=== PATIENT | female | born 1955 | race Caucasian/White ===

== ENCOUNTER 2018-09-18 20:38 | Emergency (ER) | payer MEDICAID, OTHER ==
[~2018-09-18] VITALS: Ht 152.4 cm; Wt 54.4 kg
--- NOTE | 2018-09-18 20:47 | ED Lower Extremity ---
General Stated Complaint: LEFT ANKLE PAIN Source: patient Exam Limitations: no limitations History of Present Illness Date Seen by Provider: Sep 18, 2018 Time Seen by Provider: 20:43 Initial Comments To ER with left ankle and foot pain. She arrives per EMS from [place] and [place]. Primary care is Dr. Randle in [facility]. She states that this began 2 weeks ago after a fall. She has fallen several more times because of the left ankle pain. Tonight, she took 3 of her 0.5 mg Xanax tablets hoping to "just go to sleep". About an hour later she didn't have much pain improvement from the Xanax, so she took another 3 tablets. She has also been taking tramadol at home without much relief. She states that she has not seen Dr. Sommers for any of this pain. Onset: just prior to arrival Severity: moderate Pain/Injury Location: left ankle Method of Injury: fell Modifying Factors: Worse With Movement Allergies and Home Medications Allergies Coded Allergies: No Known Drug Allergies (Unverified , 09/18/18) Patient Home Medication List Home Medication List Reviewed: Yes Review of Systems Constitutional: see HPI EENTM: see HPI Respiratory: no symptoms reported Cardiovascular: no symptoms reported Genitourinary: no symptoms reported Musculoskeletal: see HPI Skin: no symptoms reported Psychiatric/Neurological: No Symptoms Reported Past Eouzzmi-Dtzmvi-Mcmiow Hx Patient Social History Recent Foreign Travel: No Contact w/Someone Who Travel: No Physical Exam Vital Signs Vital Signs - First Documented 09/18/18 20:47 Temp 98.2 Pulse 83 Resp 16 B/P (MAP) 143/88 (106) Pulse Ox 94 O2 Delivery Room Air Capillary Refill : Height, Weight, BMI Height: '" Weight: lbs. oz. kg; BMI Method: General Appearance: WD/WN, no apparent distress Respiratory: no respiratory distress, no accessory muscle use Hips: bilateral hip non-tender, bilateral hip normal inspection, bilateral hip normal range of motion Legs: bilateral leg non-tender, bilateral leg normal inspection, bilateral leg normal range of motion Knees: left knee pain, left knee soft tissue tenderness, left knee other ( there is no swelling ecchymosis or deformity. She has a strong dorsalis pedis pulse bilaterally is able to wiggle her toes with normal sensation.) Ankles: bilateral ankle non-tender, bilateral ankle normal inspection, bilateral ankle normal range of motion Neurologic/Psychiatric: alert, normal mood/affect, oriented x 3 Skin: normal color, warm/dry Progress/Results/Core Measures Results/Orders My Orders Orders - ROBY MEJIA APRN Ankle, Left, 3 Views (09/18/18 20:42) Foot, Left, 3 Views (09/18/18 20:42) Knee, Right, 3 Views (09/18/18 20:48) Vital Signs/I&O 09/18/18 09/18/18 20:47 22:00 Temp 98.2 98.6 Pulse 83 87 Resp 16 18 B/P (MAP) 143/88 (106) 131/86 (101) Pulse Ox 94 95 O2 Delivery Room Air Room Air Departure Communication (Admissions) given a walking boot and dc'd to home. Impression Primary Impression: Left ankle sprain Qualified Codes: S93.402A - Sprain of unspecified ligament of left ankle, initial encounter Disposition: HOME, SELF-CARE Condition: Stable Departure-Patient Inst. Decision time for Depature: 20:46 Patient Instructions: Ankle Sprain (DC) Add. Discharge Instructions: 1. Return to ER for any concerns 2. Follow-up with your doctor next week 3. Wear the boot as needed when walking for support and additional pain control. You should not take Xanax for pain control and do not take 1.5 mg or 3 tablets all at once without talking to your doctor first. ROBY MEJIA APRN Sep 18, 2018 20:47
[2018-09-18] MEDS ORDERED: ATEN-155 (21:01)
[2018-09-18] MEDS ORDERED: PANT20TA (21:01)
[2018-09-18] MEDS ORDERED: SUCR1TAB36 (21:01)
[2018-09-18] MEDS ORDERED: ALPR0.5T (21:01)
[2018-09-18] MEDS ORDERED: ATEN-156 (21:06)
[2018-09-18 22:00] VITALS: BP 131/86
--- NOTE | 2018-09-18 22:35 | Diagnostic Imaging Report ---
INDICATION: Fall. Foot injury. COMPARISON: None. FINDINGS: 3 views of the left foot demonstrate no acute fracture or dislocation. There are no focal osseous lesions. There is no soft tissue swelling. Joint spaces are well maintained. No radiopaque foreign bodies are seen. IMPRESSION: No acute fractures or dislocations of the left foot. Dictated by: Dictated on workstation # [id number]
--- NOTE | 2018-09-18 22:36 | Diagnostic Imaging Report ---
INDICATION: Fall. Knee pain. COMPARISON: None. FINDINGS: 3 views of the right knee joint demonstrate no acute fracture or dislocation. No focal osseous lesions are seen. No significant joint effusion is seen. The surrounding soft tissue structures are unremarkable. There are no radiopaque foreign bodies. IMPRESSION: 1. No acute fractures or dislocations of the right knee joint. Dictated by: Dictated on workstation # [id number]
--- NOTE | 2018-09-18 22:36 | Diagnostic Imaging Report ---
INDICATION: Fall. Ankle pain. COMPARISON: None. FINDINGS: 3 views of the left ankle were obtained. There is no acute fracture or dislocation. No focal osseous lesions are seen. The surrounding soft tissue structures are unremarkable. There are no radiopaque foreign bodies. IMPRESSION: 1. No acute fracture or dislocation in the left ankle. Dictated by: Dictated on workstation # [id number]
== END 2018-09-18 22:00 | disposition home or self-care (01) ==
LOC: ER 20:41
DX: S93.402A Sprain of unspecified ligament of left ankle, initial encounter (principal); Z91.81 History of falling; W19.XXXA Unspecified fall, initial encounter
CPT/HCPCS: 73562; 73610; 73630

== ENCOUNTER 2019-04-11 19:03 | Emergency (ER) | payer SELFPAY ==
[~2019-04-11] VITALS: Ht 152.4 cm; Wt 49.9 kg
[~2019-04-11 19:03] MED LIST: ALPR0.5T; ATEN-155; ATEN-156; PANT20TA; SUCR1TAB36
--- NOTE | 2019-04-11 19:05 | NUR ---
patient arrives via EMS to room 08, patient is made comfortable in bed. verbalizes she does not know why she took the handful of pills, she states she was not trying to kill herself. Addendum: 04/11/19 at 2030 by [id number] patient belongings are gathered and placed at the desk.
--- OUTSIDE RECORDS SUMMARY | 2019-04-11 19:09 | XMS REPORT | CCD ---
Author Author SHILPI RÍOS Organization Unknown Address [address] [facility] [address] [place], [place] [id number] Care Team Providers Care Packer And Carry Out Name Role Phone DAVIDAJEFRY SAMARIA DO Attphys LAI CLIFTON, HARRISON Richardson B., MARLO NASST R., ZAINAB Tubbs NASST S., KALE GUTIÉRREZ NASST S., DANILO NASST F., BRANDON NASST S., WENDY Tubbs NASST G., JAMESON NASST R., SHEILA NASST G., ADELA NASST K., HA Tubbs NASST Vital Signs Vital Sign Value Unit Date/Time Recent/Initial? BP Systolic 128 mmHg 11/05/2015 17:33 Initial VS BP Diastolic 90 mmHg 11/05/2015 17:33 Initial VS Respiratory Rate 18 bpm 11/05/2015 17:33 Initial VS Heart Rate 108 bpm 11/05/2015 17:33 Initial VS O2 % BldC Oximetry 96 % 11/05/2015 17:33 Initial VS Body Temperature 96.5 degrees 11/05/2015 17:33 Initial VS Weight Measured 109.5 lbs 11/05/2015 17:34 Initial VS Height 60 in 11/05/2015 17:34 Initial VS BMI (Body Mass Index) 21.39 kg/m^2 11/05/2015 17:34 Initial VS BSA (Body Surface Area) 1.45 m^2 11/05/2015 17:34 Initial VS BP Systolic 127 mmHg 11/07/2015 12:00 Most Recent VS BP Diastolic 82 mmHg 11/07/2015 12:00 Most Recent VS Respiratory Rate 18 bpm 11/07/2015 12:00 Most Recent VS Heart Rate 95 bpm 11/07/2015 12:00 Most Recent VS O2 % BldC Oximetry 96 % 11/07/2015 12:00 Most Recent VS Body Temperature 97.6 degrees 11/07/2015 12:00 Most Recent VS Allergies Allergy Code Allergy Type Reaction Status No Known Drug Allergies 0 No known drug allergies Active Procedures Procedure Code Procedure Type Date COMPREHENSIVE METABOLIC PANEL 727012475 SNOMED CT 11/05/2015 CBC W/ AUTO DIFF (RFLX MAN DIFF IF IND) 6150030 SNOMED CT 11/05/[address] 11/05/[address] 11/05/[address] 11/05/2015 UA ROUTINE C&S IF IND 566097559 SNOMED CT 11/05/2015 RAPID DRUG SCREEN 903034950 SNOMED CT 11/05/[address] 11/05/[address] 11/05/2015 T4 FREE [address]2491 SNOMED CT 11/05/2015 ^CBC W/AUTO DIFF 0470939 SNOMED CT 11/05/[address] 11/05/[address] 11/05/2015 CBC W/ AUTO DIFF (RFLX MAN DIFF IF IND) 0724762 SNOMED CT 11/06/2015 COMPREHENSIVE METABOLIC PANEL 152030908 SNOMED [address] 11/06/[address] 11/06/[address] 11/06/2015 COMPREHENSIVE METABOLIC PANEL 736349589 SNOMED CT 11/05/[address] 11/05/2015 ^UA AUTO DIPSTICK ONLY 616013046 SNOMED CT 11/06/2015 ^CBC W/ MANUAL DIFF 36250031 SNOMED CT 11/06/2015 VITAMIN B[address] 11/07/2015 CBC W/ AUTO DIFF (RFLX MAN DIFF IF IND) 9623772 SNOMED CT 11/07/2015 COMPREHENSIVE METABOLIC PANEL 131927547 SNOMED CT 11/07/[address] 11/07/[address] 11/07/2015 ^CBC W/ MANUAL DIFF 54319789 SNOMED CT 11/07/2015 TROPONIN-I ADV 988030900 SNOMED CT 11/07/2015 CT HEAD W/O CONTRAST 543945917 SNOMED CT 11/05/2015 CX CHEST 1 VIEW 568040488 [facility] CT 11/06/2015 History of Immunizations Unknown or Not Available. Problems Problem Code Start Date Resolved Date Status Alcoholism 8607782 Active Results AMMONIA - Collect Date/Time: 11/05/2015 15:00 Test Name Code Test Result Test Units Test Ref Range AMMONIA 09131-4 42 umol/L L=11 H=35 COMPREHENSIVE METABOLIC PANEL - Collect Date/Time: 11/07/2015 06:59 Test Name Code Test Result Test Units Test Ref Range GLUCOSE 2345-7 100 MG/DL L=70 H=100 SODIUM 2951-2 140 MEQ/L L=135 H=148 POTASSIUM 2823-3 3.7 MEQ/L L=3.5 H=5.3 CHLORIDE 2075-0 106 MEQ/L L=96 H=110 CO2 2028-9 28 MEQ/L L=22 H=29 BUN 3094-0 2 MG/DL L=8 H=22 CREATININE 2160-0 0.5 MG/DL L=0.6 H=1.6 SGOT/AST 1920-8 94 IU/L L=10 H=40 SGPT/ALT 1742-6 15 IU/L L=8 H=54 ALK PHOS 6768-6 304 IU/L L=35 H=115 TOTAL PROTEIN 2885-2 6.1 G/DL L=5.5 H=8.5 ALBUMIN 1751-7 2.6 G/DL L=3.1 H=5.4 TOTAL BILI 1975-2 1.4 MG/DL L=0.0 H=1.5 CALCIUM 66222-8 7.9 MG/DL L=8.2 H=10.6 AGE 60 yrs GFR NonAA 126 GFR AA 153 eGFR >60 N/A eGFR AA* >60 N/A COMPREHENSIVE METABOLIC PANEL - Collect Date/Time: 11/06/2015 06:20 Test Name Code Test Result Test Units Test Ref Range GLUCOSE 2345-7 98 MG/DL L=70 H=100 SODIUM 2951-2 138 MEQ/L L=135 H=148 POTASSIUM 2823-3 3.3 MEQ/L L=3.5 H=5.3 CHLORIDE 2075-0 103 MEQ/L L=96 H=110 CO2 2028-9 27 MEQ/L L=22 H=29 BUN 3094-0 2 MG/DL L=8 H=22 CREATININE 2160-0 0.5 MG/DL L=0.6 H=1.6 SGOT/AST 1920-8 73 IU/L L=10 H=40 SGPT/ALT 1742-6 13 IU/L L=8 H=54 ALK PHOS 6768-6 314 IU/L L=35 H=115 TOTAL PROTEIN 2885-2 5.7 G/DL L=5.5 H=8.5 ALBUMIN 1751-7 2.5 G/DL L=3.1 H=5.4 TOTAL BILI 1975-2 1.6 MG/DL L=0.0 H=1.5 CALCIUM 54054-8 7.7 MG/DL L=8.2 H=10.6 AGE 60 yrs GFR NonAA 126 GFR AA 153 eGFR >60 N/A eGFR AA* >60 N/A COMPREHENSIVE METABOLIC PANEL - Collect Date/Time: 11/05/2015 19:45 Test Name Code Test Result Test Units Test Ref Range GLUCOSE 2345-7 109 MG/DL L=70 H=100 SODIUM 2951-2 135 MEQ/L L=135 H=148 POTASSIUM 2823-3 3.1 MEQ/L L=3.5 H=5.3 CHLORIDE 2075-0 95 MEQ/L L=96 H=110 CO2 2028-9 30 MEQ/L L=22 H=29 BUN 3094-0 3 MG/DL L=8 H=22 CREATININE 2160-0 0.5 MG/DL L=0.6 H=1.6 SGOT/AST 1920-8 98 IU/L L=10 H=40 SGPT/ALT 1742-6 16 IU/L L=8 H=54 ALK PHOS 6768-6 345 IU/L L=35 H=115 TOTAL PROTEIN 2885-2 6.2 G/DL L=5.5 H=8.5 ALBUMIN 1751-7 2.7 G/DL L=3.1 H=5.4 TOTAL BILI 1975-2 2.0 MG/DL L=0.0 H=1.5 CALCIUM 43874-2 8.1 MG/DL L=8.2 H=10.6 AGE 60 yrs GFR NonAA 126 GFR AA 153 eGFR >60 N/A eGFR AA* >60 N/A COMPREHENSIVE METABOLIC PANEL - Collect Date/Time: 11/05/2015 15:00 Test Name Code Test Result Test Units Test Ref Range GLUCOSE 2345-7 122 MG/DL L=70 H=100 SODIUM 2951-2 133 MEQ/L L=135 H=148 POTASSIUM 2823-3 2.7 MEQ/L L=3.5 H=5.3 CHLORIDE 2075-0 91 MEQ/L L=96 H=110 CO2 2028-9 31 MEQ/L L=22 H=29 BUN 3094-0 3 MG/DL L=8 H=22 CREATININE 2160-0 0.5 MG/DL L=0.6 H=1.6 SGOT/AST 1920-8 108 IU/L L=10 H=40 SGPT/ALT 1742-6 18 IU/L L=8 H=54 ALK PHOS 6768-6 369 IU/L L=35 H=115 TOTAL PROTEIN 2885-2 6.8 G/DL L=5.5 H=8.5 ALBUMIN 1751-7 2.9 G/DL L=3.1 H=5.4 TOTAL BILI 1975-2 1.9 MG/DL L=0.0 H=1.5 CALCIUM 32918-5 8.5 MG/DL L=8.2 H=10.6 AGE 60 yrs GFR NonAA 126 GFR AA 153 eGFR >60 N/A eGFR AA* >60 N/A LIPASE - Collect Date/Time: 11/05/2015 19:45 Test Name Code Test Result Test Units Test Ref Range LIPASE 3040-3 33 U/L L=8 H=78 ALCOHOL - Collect Date/Time: 11/05/2015 15:00 Test Name Code Test Result Test Units Test Ref Range ETHANOL 5640-8 <10 MG/DL RAPID DRUG SCREEN - Collect Date/Time: 11/06/2015 06:59 Test Name Code Test Result Test Units Test Ref Range Cannabinoids (THC) NEGATIVE N/A NEG: < 50 ng/ml Phencyclidine (PCP) NEGATIVE N/A NEG: < 25 ng/ml Cocaine NEGATIVE N/A NEG: < 300 ng/ml Methamphetamine NEGATIVE N/A NEG: < 1000 ng/ml Opiates NON-NEGATIVE N/A NEG: < 300 ng/ml Amphetamine NEGATIVE N/A NEG: < 1000 ng/ml Benzodiazepines NON-NEGATIVE N/A NEG: < 300 ng/ml Tricyclic Antidepres NEGATIVE N/A NEG: < 300 ng/ml Methadone NEGATIVE N/A NEG: < 300 ng/ml Barbiturates NEGATIVE N/A NEG: < 200 ng/ml Oxycodone NON-NEGATIVE N/A NEG: < 100 ng/ml Propoxyphene (PPX) NEGATIVE N/A NEG: < 300 ng/ml CBC W/ AUTO DIFF (RFLX MAN DIFF IF IND) - Collect Date/Time: 11/07/2015 06:59 Test Name Code Test Result Test Units Test Ref Range WBC 52491-4 5.2 TH/CMM L=4.5 H=10.8 RBC 789-8 2.33 ML/CMM L=4.20 H=5.40 HGB 718-7 8.5 G/DL L=12.0 H=16.0 HCT 4544-3 27.7 % L=37.0 H=47.0 MCV 119 FL L=81 H=99 MCH 36.5 PG L=27.0 H=33.0 MCHC 30.7 G/DL L=31.0 H=36.0 RDW SD 73 FL L=36 H=50 RDW CV 17.2 % L=0.0 H=14.8 MPV 9.2 FL L=9.3 H=12.5 PLT 777-3 161 TH/CMM L=130 H=440 NRBC# 0.00 TH/CMM L=0.00 H=0.00 NRBC% 0.0 /100WBC L=0.0 H=2.0 %NEUT 63.0 % %LYMP 19.3 % %MONO 15.2 % %EOS 1.2 % %BASO 1.3 % #NEUT 3.27 TH/CMM L=2.10 H=8.20 #LYMP 1.00 TH/CMM L=0.90 H=5.20 #MONO 0.79 TH/CMM L=0.16 H=1.00 #EOS 0.06 TH/CMM L=0.00 H=0.80 #BASO 0.07 TH/CMM L=0.00 H=0.20 SEGS 64 % BANDS 3 % LYMPHS 21 % MONOS 12 % MANUAL DIFF SEE BELOW N/A MACRO 2++ N/A ANISO 2++ N/A HYPO 1+ N/A CBC W/ AUTO DIFF (RFLX MAN DIFF IF IND) - Collect Date/Time: 11/06/2015 06:20 Test Name Code Test Result Test Units Test Ref Range WBC 76368-5 5.0 TH/CMM L=4.5 H=10.8 RBC 789-8 2.31 ML/CMM L=4.20 H=5.40 HGB 718-7 8.3 G/DL L=12.0 H=16.0 HCT 4544-3 26.7 % L=37.0 H=47.0 MCV 116 FL L=81 H=99 MCH 35.9 PG L=27.0 H=33.0 MCHC 31.1 G/DL L=31.0 H=36.0 RDW SD 73 FL L=36 H=50 RDW CV 17.4 % L=0.0 H=14.8 MPV 9.4 FL L=9.3 H=12.5 PLT 777-3 135 TH/CMM L=130 H=440 NRBC# 0.00 TH/CMM L=0.00 H=0.00 NRBC% 0.0 /100WBC L=0.0 H=2.0 %NEUT 72.6 % %LYMP 13.4 % %MONO 13.4 % %EOS 0.2 % %BASO 0.4 % #NEUT 3.64 TH/CMM L=2.10 H=8.20 #LYMP 0.67 TH/CMM L=0.90 H=5.20 #MONO 0.67 TH/CMM L=0.16 H=1.00 #EOS 0.01 TH/CMM L=0.00 H=0.80 #BASO 0.02 TH/CMM L=0.00 H=0.20 SEGS 87 % MONOS 7 % EOS 6 % MANUAL DIFF SEE BELOW N/A MACRO 2++ N/A ANISO 2++ N/A HYPO 2++ N/A POLYCHROMASIA 1+ N/A CBC W/ AUTO DIFF (RFLX MAN DIFF IF IND) - Collect Date/Time: 11/05/2015 15:00 Test Name Code Test Result Test Units Test Ref Range WBC 61104-7 7.7 TH/CMM L=4.5 H=10.8 RBC 789-8 2.62 ML/CMM L=4.20 H=5.40 HGB 718-7 9.3 G/DL L=12.0 H=16.0 HCT 4544-3 28.9 % L=37.0 H=47.0 MCV 110 FL L=81 H=99 MCH 35.5 PG L=27.0 H=33.0 MCHC 32.2 G/DL L=31.0 H=36.0 RDW SD 69 FL L=36 H=50 RDW CV 17.1 % L=0.0 H=14.8 MPV 9.5 FL L=9.3 H=12.5 PLT 777-3 147 TH/CMM L=130 H=440 NRBC# 0.00 TH/CMM L=0.00 H=0.00 NRBC% 0.0 /100WBC L=0.0 H=2.0 %NEUT 80.3 % %LYMP 8.9 % %MONO 10.3 % %EOS 0.0 % %BASO 0.5 % #NEUT 6.21 TH/CMM L=2.10 H=8.20 #LYMP 0.69 TH/CMM L=0.90 H=5.20 #MONO 0.80 TH/CMM L=0.16 H=1.00 #EOS 0.00 TH/CMM L=0.00 H=0.80 #BASO 0.04 TH/CMM L=0.00 H=0.20 MANUAL DIFF NOT IND N/A PROTIME - Collect Date/Time: 11/05/2015 15:00 Test Name Code Test Result Test Units Test Ref Range PROTIME 30558-7 12.9 SEC L=9.9 H=11.9 INR 1.3 UA ROUTINE C&S IF IND - Collect Date/Time: 11/06/2015 07:00 Test Name Code Test Result Test Units Test Ref Range COLOR YELLOW N/A NL: YELLOW APPEARANCE CLEAR N/A NL: CLEAR SPEC GRAV 1.010 N/A NL: 1.002 - 1.022 pH 7.0 N/A NL: 5 - 9 PROTEIN NEGATIVE N/A NL: NEGATIVE mg/dl GLUCOSE NEGATIVE N/A NL: NEGATIVE mg/dl KETONE NEGATIVE N/A NL: NEGATIVE mg/dl BILIRUBIN NEGATIVE N/A NL: NEGATIVE BLOOD NEGATIVE N/A NL: NEGATIVE NITRITE NEGATIVE N/A NL: NEGATIVE LEUK SCREEN NEGATIVE N/A NL: NEGATIVE MICRO INDICATED? NOT INDICATED N/A PROLACTIN - Collect Date/Time: 11/05/2015 15:00 Test Name Code Test Result Test Units Test Ref Range Prolactin 2842-3 9.0 ng/mL 4.8-23.3 VITAMIN B1 - Collect Date/Time: 11/07/2015 06:59 Test Name Code Test Result Test Units Test Ref Range Vit. B1, Whole Blood 00682-9 152.7 nmol/L 66.5-200.0 TROPONIN-I ADV - Collect Date/Time: 11/07/2015 06:59 Test Name Code Test Result Test Units [place] [address]-2 <0.04 ng/mL L=0.04 H=0.40 VITAMIN B12 & FOLATE - Collect Date/Time: 11/06/2015 06:20 Test Name Code Test Result Test Units Test Ref Range VITAMIN B12 2132-9 1127 PG/ML L=213 H=816 FOLATE 2284-8 >40.00 ng/mL T4 FREE - Collect Date/Time: 11/05/2015 15:00 Test Name Code Test Result Test Units Test Ref Range FREE T4 3024-7 1.13 NG/DL L=0.71 H=1.85 TSH - Collect Date/Time: 11/05/2015 15:00 Test Name Code Test Result Test Units Test Ref Range TSH 06519-0 1.25 mIU/L L=0.35 H=4.94 MAGNESIUM - Collect Date/Time: 11/07/2015 06:59 Test Name Code Test Result Test Units Test Ref Range MAGNESIUM 14597-8 1.9 MG/DL L=1.7 H=2.8 MAGNESIUM - Collect Date/Time: 11/06/2015 06:20 Test Name Code Test Result Test Units Test Ref Range MAGNESIUM 52018-2 2.5 MG/DL L=1.7 H=2.8 MAGNESIUM - Collect Date/Time: 11/05/2015 15:00 Test Name Code Test Result Test Units Test Ref Range MAGNESIUM 41912-5 1.6 MG/DL L=1.7 H=2.8 PHOSPHORUS - Collect Date/Time: 11/07/2015 06:59 Test Name Code Test Result Test Units Test Ref Range PHOSPHORUS 2777-1 2.4 MG/DL L=2.5 H=4.5 PHOSPHORUS - Collect Date/Time: 11/06/2015 06:20 Test Name Code Test Result Test Units Test Ref Range PHOSPHORUS 2777-1 2.4 MG/DL L=2.5 H=4.5 PHOSPHORUS - Collect Date/Time: 11/05/2015 15:00 Test Name Code Test Result Test Units Test Ref Range PHOSPHORUS 2777-1 2.2 MG/DL L=2.5 H=4.5 Active Medications Medication Code Dose Units Frequency Route Modification Start Date/Time Atenolol 50MG Oral Tablet 813259 50 MILLIGRAMS DAILY ORAL 11/07/2015 13:00 Prescription Detail 50 MILLIGRAMS ORAL DAILY Folic Acid 1MG Oral Tablet 368143 1 MILLIGRAMS DAILY BY MOUTH 11/07/2015 13:00 Prescription Detail 1 MILLIGRAMS BY MOUTH DAILY Lortab 7.5/325 7.5MG-325MG Oral Tablet 4879622 1 EACH NEEDED EVERY 4 HR ORAL 11/07/2015 13:00 Prescription Detail 1 EACH ORAL NEEDED EVERY 4 HR Thera-M Enhanced 90MG-0.03MG-0.15MG-4 Oral Tablet 888685 1 TABLET DAILY BY MOUTH 11/07/2015 13:00 Prescription Detail 1 TABLET BY MOUTH DAILY Vitamin B1 100MG Oral Tablet 021630 100 MILLIGRAMS DAILY BY MOUTH 11/07/2015 13:00 Prescription Detail 100 MILLIGRAMS BY MOUTH DAILY Xanax 0.5MG Oral Tablet 519370 0.5 MILLIGRAMS NEEDED EVERY 8 HR ORAL 11/07/2015 13:00 Prescription Detail 0.5 MILLIGRAMS ORAL NEEDED EVERY 8 HR Medications Administered During Visit Medication Dose Units Frequency Route Date/Time of Last Dose POTASSIUM CL [K JAMEEL] IV 10MEQ/50ML BAG 10 MQ Q1H IVPB 11/05/2015 18:29 OXAZEPAM [SERAX] 15 MG CAPSULE 15 MG PRN Q 6 HRS PO 11/07/2015 01:55 NS 1000 ML IV [PREDEFINED] (7983) CONT IV IV 11/07/2015 08:30 BANANA BAG X1 IV 11/05/2015 22:37 OXYCODONE 5 MG IMMEDIATE RELEASE TAB 1 TAB PRN Q 4 HRS PO 11/07/2015 11:40 POTASSIUM CHL [K DUR] TABLET: 20 MEQ 20 MEQ BID PO 11/07/2015 08:49 FOLIC ACID(FOLVITE) TAB:1MG 1 MG DAILY PO 11/07/2015 08:49 THIAMINE HCL [VITAMIN B-1] TAB: 100 MG 100 MG DAILY PO 11/07/2015 08:49 VITAMIN (LH SUB FOR ALL MULTIVITAMINS) 1 TAB DAILY PO 11/07/2015 08:49 ATENOLOL [TENORMIN] TAB : 50 MG 50 MG HS PO 11/06/2015 18:24 Encounters Encounter Diagnosis Diagnosis Code Start Date Alcohol dependence with withdrawal, unspecified [id number] 11/05/2015 Social History Smoking Status Code Start Date End Date Current every day smoker [id number] Patient Decision Aids Unknown or Not Available. Discharge Instructions You were admitted to [facility] on 11/05/2015 with a principal diagnosis of Alcohol dependence with withdrawal, unspecified. You had the following tests done: Prolactin Vit. B1, Whole Blood You were discharged from [facility] on 11/07/2015. Should you have any questions prior to discharge, please contact a member of your healthcare team. If you have left the hospital and have any questions, please contact your primary care physician. HOME DIET: Regular. CONDITION AT DISMISSAL Stable. HOME MEDICATION INSTRUCTIONS: Take only the medications listed above.. Verbalizes understanding of instructions. HOME MEDS RETURNED TO PATIENT: N/A. ACTIVITY INSTRUCTIONS(list limitations): Activity as Tolerated. RETURN TO WORK/SCHOOL: N/A. SCRIPTS WRITTEN BY DOCTOR GIVEN TO PATIENT? Yes, for what?, VITAMIN B1 100MG ONE TABLET BY MOUTH DAILY. FOLIC ACID 1MG ONE TABLET BY MOUTH DAILY. THER-M ENHANCED 90MG-0.03MG-0.15MG-4 1 TABLET BY MOUTH DAILY. IMMUNIZATIONS GIVEN DURING HOSPITALIZATION: REFUSED FLU VACC PAIN MANAGEMENT: "Pain Management at Home" instruct given. FOLLOW UP CARE - SEE YOUR PHYSICIAN: DR. SOMMERS Friday11-14-14 10:00 AM PRIMARY CARE PHYSICIAN OR PRACTITIONER: Robert Sommers DO, . CONTACT PHYSICIAN IF YOU EXPERIENCE ANY: ACUTE CHEST PAIN, SHORTNESS OF AIR NOT RELIEVED BY REST PERSONAL ITEMS RETURNED: Yes. PATIENT PORTAL/OTHER INSTRUCTIONS: Provided education info on Patient Arelis. Bring these instructions to next visit? Yes. INSTRUCTIONS GIVEN AND DISCHARGE TO: Patient, Spouse/SO. VOICES UNDERSTANDING OF INSTRUCTIONS: Yes. INSTRUCTIONS GIVEN BY (TYPE IN NAME AND DATE) DANIEL LAMB CHIEF COMPLAINT: PT STATES SITTING ON COUCH AND WOKE UP WITH TONUGE BITTEN. STATES PT HAD SEZIURE Chief Complaint and Reason For Visit Chief Complaint Date of Onset SEIZURES ALCOHOL WITHDRAW Function Status Unknown or Not Available. Plan of Care Unknown or Not Available. Referral/Transition of Care Unknown or Not Available.
--- OUTSIDE RECORDS SUMMARY | 2019-04-11 19:10 | XMS REPORT | Continuity of Care Document ---
Author Organization Unknown Address Unknown Allergies Active Description Code Type Severity Reaction Onset Reported/Identified Relationship to Patient Clinical Status Yes No Known Drug Allergies [id number] N/A N/A Yes No Known Drug Allergies [id number] Drug Allergy Unknown N/A 09/18/2018 Medications There is no data. Problems Date Dx Coded Attending Type Code Diagnosis Diagnosed By 01/25/2018 S K30055 Nicotine dependence, cigarettes, uncomplicated 01/25/2018 S [id number] Strain of muscle, fascia and tendon at neck level, initial encounter 01/25/2018 P [id number] Contusion of right hip, initial encounter 01/25/2018 S [id number] Striking against other object with subsequent fall, initial encounter 01/25/2018 S I17312 Bathroom of single- family (private) house as the place of occurrence of the external cause 01/25/2018 S Z7289 Other problems related to lifestyle 01/25/2018 S F30765 Other intermediate card tender (current) drug therapy 01/25/2018 S Z9181 History of falling 09/18/2018 ROBY MEJIA APRN Ot M25.572 PAIN IN LEFT ANKLE AND JOINTS OF LEFT FO 09/18/2018 ROBY MEJIA APRN Ot S93.402A SPRAIN OF UNSPECIFIED LIGAMENT OF LEFT A 09/18/2018 ROBY MEJIA APRN Ot W19.XXXA UNSPECIFIED FALL, INITIAL ENCOUNTER 09/18/2018 ROBY MEJIA APRN Ot Z91.81 HISTORY OF FALLING 09/21/2018 ROBY MEJIA APRN Ot M25.572 PAIN IN LEFT ANKLE AND JOINTS OF LEFT FO 09/21/2018 ROBY MEJIA APRN Ot S93.402A SPRAIN OF UNSPECIFIED LIGAMENT OF LEFT A 09/21/2018 ROBY MEJIA APRN Ot W19.XXXA UNSPECIFIED FALL, INITIAL ENCOUNTER 09/21/2018 ROBY MEJIA APRN Ot Z91.81 HISTORY OF FALLING Procedures There is no data. Results There is no data. Encounters ACCT No. Visit Date/Time Discharge Status Pt. Type Provider Facility Loc./Unit Complaint [id number] 11/26/2018 10:09:11 11/26/2018 23:59:59 CLS Outpatient Robert Sommers V [id number] 09/25/2018 10:51:56 09/25/2018 23:59:59 CLS Outpatient Robert Sommers V [id number] 09/10/2018 16:20:38 09/10/2018 23:59:59 CLS Outpatient Erick Maryam Aleman [id number] 07/23/2018 10:16:49 07/23/2018 23:59:59 CLS Outpatient Robert Sommers V [id number] 02/23/2018 15:33:34 02/23/2018 23:59:59 CLS Outpatient Erick Maryam Aleman [id number] 01/27/2018 11:01:34 01/27/2018 23:59:59 CLS Outpatient Robert Sommers V [id number] 07/10/2017 14:12:19 07/10/2017 23:59:59 CLS Outpatient Maryam Suarez [id number] 04/07/2017 15:40:32 04/07/2017 23:59:59 CLS Outpatient Cal Jorge [id number] 04/07/2017 15:33:59 04/07/2017 23:59:59 CLS Outpatient Barney Banks [id number] 01/24/2016 13:12:57 01/24/2016 23:59:59 CLS Outpatient ErickMaryam [id number] 11/25/2015 13:28:48 11/25/2015 23:59:59 CLS Outpatient Lorenzo Delacruz [id number] 09/18/2018 20:41:00 09/18/2018 22:00:00 DIS Emergency ROBY MEJIA APRN [facility] ER LEFT ANKLE PAIN [id number] 07/13/2018 13:07:53 Document Registration [id number] 07/13/2018 13:01:50 Document Registration [id number] 01/25/2018 00:17:12 Document Registration [id number] 01/25/2018 00:10:38 Document Registration
--- OUTSIDE RECORDS SUMMARY | 2019-04-11 19:10 | XMS REPORT | CCD ---
Author Author JOSÉ LUIS CARVALHO Unknown Address [address] [facility] [address] [place] [address] Care Team Providers Care Bank Guard Name Role Phone ILYA SANTANA MD Attphys CINDI DUTTON, HARRISON Cornejo Prisureryn JARRED CLIFTON, HARRISON Preston Rndphys H., MADAY D NASST B., KARIN NASST H., MADAY D NASST F., DEEPA NASST B., MARLO NASST Allergies Allergy Code Allergy Type Reaction Status No Known Drug Allergies 0 Drug allergy Active Active Medications Medication Code Dose Units Frequency Route Modification Start Date/Time CeleXA 20MG Oral Tablet 381182 20 MILLIGRAMS AT BEDTIME ORAL 04/01/2017 11:31 Prescription Detail 20 MILLIGRAMS ORAL AT BEDTIME HYDROcodone bitartrate-acetaminophen 7.5MG-325MG Oral Tablet 733514 1 TABLET NEEDED BY MOUTH 04/01/2017 11:31 Prescription Detail 1 TABLET BY MOUTH NEEDED Sucralfate 1GM/10ML Oral Suspension 267020 400 mL FOUR TIMES A DAY BY MOUTH 04/01/2017 11:31 Prescription Detail 400 mL BY MOUTH FOUR TIMES A DAY Ferrex 150 150MG Oral Capsule 987872 150 MILLIGRAMS TWO TIMES A DAY BY MOUTH 04/01/2017 11:30 Prescription Detail 150 MILLIGRAMS BY MOUTH TWO TIMES A DAY Lidoderm 5% Topical application Patch, Extended Release 0335680 1 PATCH DAILY TOPICAL APPLICATION 04/01/2017 11:30 Prescription Detail 1 PATCH TOPICAL APPLICATION DAILY Methocarbamol 500MG Oral Tablet 577547 500 MILLIGRAMS FOUR TIMES A DAY BY MOUTH 04/01/2017 11:30 Prescription Detail 500 MILLIGRAMS BY MOUTH FOUR TIMES A DAY Protonix 40MG Oral Tablet, Enteric Coated 730527 40 MILLIGRAMS TWO TIMES A DAY BY MOUTH 04/01/2017 11:30 Prescription Detail 40 MILLIGRAMS BY MOUTH TWO TIMES A DAY for 8 weeks then daily therafter Atenolol 50MG Oral Tablet 207177 50 MILLIGRAMS DAILY ORAL 11/07/2015 13:00 Prescription Detail 50 MILLIGRAMS ORAL DAILY Lortab 7.5/325 7.5MG-325MG Oral Tablet 5956823 1 EACH NEEDED EVERY 4 HR ORAL 11/07/2015 13:00 Prescription Detail 1 EACH ORAL NEEDED EVERY 4 HR Thera-M Enhanced 90MG-0.03MG-0.15MG-4 Oral Tablet 620774 1 TABLET DAILY BY MOUTH 11/07/2015 13:00 Prescription Detail 1 TABLET BY MOUTH DAILY Xanax 0.5MG Oral Tablet 603549 0.5 MILLIGRAMS NEEDED EVERY 8 HR ORAL 11/07/2015 13:00 Prescription Detail 0.5 MILLIGRAMS ORAL NEEDED EVERY 8 HR Problems Problem Code Start Date Resolved Date Status Anemia [id number] 03/28/2017 Active CHF 57088808 03/28/2017 Active Abdominal pain 17397181 03/28/2017 Active Alcoholism 3311147 Active Procedures Procedure Code Procedure Type Date Excision of Stomach, Via Natural or Artificial Opening Endoscopic, Diagnos [id number] ICD-10 PCS 03/29/2017 ABDOMEN ACUTE SERIES 5952765 SNOMED CT 03/28/2017 CBC W/ AUTO DIFF (RFLX MAN DIFF IF IND) 7138920 SNOMED CT 03/31/[address] 03/31/2017 RENAL FUNCTION PANEL 166063702 SNOMED CT 03/31/2017 PATHOLOGY ORDER 744249098 SNOMED [address] 03/29/[address] 03/30/[address] 03/30/2017 BASIC METABOLIC PANEL 021465188 SNOMED CT 03/30/2017 CBC W/ AUTO DIFF (RFLX MAN DIFF IF IND) 8175582 SNOMED CT 03/30/2017 .BB COMPATIBILITY 553017491 SNOMED CT 03/28/2017 H and H 59126626 SNOMED CT 03/28/[address] 03/29/[address] 03/29/2017 COMPREHENSIVE METABOLIC PANEL 519426908 SNOMED CT 03/29/2017 CBC W/ MANUAL DIFF 78736466 SNOMED CT 03/29/2017 .BB COMPATIBILITY 954461105 SNOMED CT 03/28/[address] 03/28/[address] 03/28/2017 TROPONIN-I ADV 545012086 SNOMED CT 03/28/2017 CULTURE BLOOD 42747550 SNOMED CT 03/28/2017 CBC W/ MANUAL DIFF 58930839 SNOMED CT 03/28/2017 COMPREHENSIVE METABOLIC PANEL 557227648 SNOMED CT 03/28/[address] 03/28/[address] 03/28/2017 .BB COMPATIBILITY 838535676 SNOMED CT 03/28/2017 .BB COMPATIBILITY 360994921 SNOMED CT 03/28/2017 .BB ABO RH RETYPE 96101636 SNOMED CT 03/28/2017 TROPONIN-I ADV 990163591 SNOMED CT 03/28/2017 TYPE AND SCREEN 49959342 SNOMED CT 03/28/2017 UA ROUTINE C&S IF IND 422158006 SNOMED CT 03/28/2017 [address]ACTIC [address] 03/28/[address] 03/28/2017 COMPREHENSIVE METABOLIC PANEL 994649313 SNOMED CT 03/28/[address] 03/28/2017 CBC W/ AUTO DIFF (RFLX MAN DIFF IF IND) 5961118 SNOMED CT 03/28/2017 PT GAIT TRAINING/STAIRS EA [address] 04/01/2017 PT THERAPEUTIC ACT. ONE ON ONE EA [address] 03/31/2017 PT EVALUATION; LOW 631335363 SNOMED CT 03/31/2017 BAN AERO ECLIPSE TREATMENT #[address] 04/01/2017 PULSE OX SLEEP STUDY 334305206 SNOMED CT 03/31/2017 BAN AERO ECLIPSE TREATMENT #[address] 03/31/2017 BAN AERO ECLIPSE TREATMENT #[address] 03/31/2017 BAN AERO ECLIPSE TREATMENT #[address] 03/30/2017 BAN AERO ECLIPSE TREATMENT #[address] 03/30/2017 BAN AERO ECLIPSE TREATMENT #[address] 03/29/2017 BAN AERO ECLIPSE TREATMENT #[address] 03/29/2017 BAN AERO ECLIPSE TREATMENT #[address] 03/28/2017 ^CBC W/AUTO DIFF 1799047 SNOMED CT 03/31/2017 ^CBC W/AUTO DIFF 0571959 SNOMED CT 03/30/2017 .BB COMPAT EXM CHARGE ONLY 373503045 SNOMED CT 03/28/2017 .BB PRC 531128284 SNOMED CT 03/28/2017 .BB COMPAT EXM CHARGE ONLY 176900745 SNOMED CT 03/28/2017 .BB PRC 452112039 SNOMED CT 03/28/2017 ^UA AUTO DIPSTICK ONLY 800013565 SNOMED CT 03/28/2017 ^CBC W/ MANUAL DIFF 90084073 SNOMED CT 03/28/2017 .BB COMPAT EXM CHARGE ONLY 705620629 SNOMED CT 03/28/2017 .BB PRC 059841711 SNOMED CT 03/28/2017 .BB COMPAT EXM CHARGE ONLY 793986420 SNOMED CT 03/28/2017 .BB PRC 921447810 SNOMED CT 03/28/2017 TYPE AND CROSS 28480859 SNOMED CT 03/28/2017 LOCM 300-349 MG/ML, PER ML 355598480 SNOMED CT 03/28/2017 BAN AERO ECLIPSE TREATMENT 07108084 SNOMED CT 04/01/2017 PULSE OX CONTINUOUS 813290247 SNOMED CT 03/31/2017 BAN AERO ECLIPSE TREATMENT 40956196 SNOMED CT 03/31/2017 BAN AERO ECLIPSE TREATMENT 19463979 SNOMED CT 03/31/2017 BAN AERO ECLIPSE TREATMENT 51592535 SNOMED CT 03/31/2017 CX CHEST [address] 03/29/2017 US ECHO 2D COMP WITH DOPP AND COLOR 67050182 SNOMED CT 03/28/2017 BAN AERO ECLIPSE TREATMENT 83093112 SNOMED CT 03/31/2017 BAN AERO ECLIPSE TREATMENT 94082121 SNOMED CT 03/30/2017 BAN AERO ECLIPSE TREATMENT 23130852 SNOMED CT 03/30/2017 BAN AERO ECLIPSE TREATMENT 78135576 SNOMED CT 03/30/2017 BAN AERO ECLIPSE TREATMENT 43848283 SNOMED CT 03/30/2017 OXYGEN/HOUR 032642456 SNOMED CT 03/29/2017 OXYGEN/HOUR 380043954 SNOMED CT 03/29/2017 BAN AERO ECLIPSE TREATMENT 38185439 SNOMED CT 03/29/2017 BAN AERO ECLIPSE TREATMENT 74506375 SNOMED CT 03/29/2017 BAN AERO ECLIPSE TREATMENT 88361891 SNOMED CT 03/29/2017 BAN AERO ECLIPSE TREATMENT 95550203 SNOMED CT 03/29/2017 OXYGEN/HOUR 070908244 SNOMED CT 03/28/2017 BAN AERO ECLIPSE TREATMENT 99459354 SNOMED CT 03/28/2017 BAN AERO ECLIPSE TREATMENT 99213779 SNOMED CT 03/28/2017 Results AMYLASE - Collect Date/Time: 03/28/2017 10:15 Test Name Code Test Result Test Units Test Ref Range AMYLASE 1798-8 71 IU/L L=25 H=125 BASIC METABOLIC PANEL - Collect Date/Time: 03/30/2017 05:05 Test Name Code Test Result Test Units Test Ref Range GLUCOSE 2345-7 98 MG/DL L=70 H=100 SODIUM 2951-2 136 MEQ/L L=135 H=148 POTASSIUM 2823-3 3.8 MEQ/L L=3.5 H=5.3 CHLORIDE 2075-0 103 MEQ/L L=96 H=110 CO2 2028-9 26 MEQ/L L=22 H=29 BUN 3094-0 4 MG/DL L=8 H=22 CREATININE 2160-0 0.7 MG/DL L=0.6 H=1.6 CALCIUM 18303-9 8.3 MG/DL L=8.2 H=10.6 AGE 540[address]-3 61 yrs GFR NonAA 16754-2 85 GFR AA 15187-7 103 eGFR 75050-9 >60 N/A eGFR AA* 19832-8 >60 N/A COMPREHENSIVE METABOLIC PANEL - Collect Date/Time: 03/29/2017 05:25 Test Name Code Test Result Test Units Test Ref Range GLUCOSE 2345-7 100 MG/DL L=70 H=100 SODIUM 2951-2 136 MEQ/L L=135 H=148 POTASSIUM 2823-3 3.5 MEQ/L L=3.5 H=5.3 CHLORIDE 2075-0 103 MEQ/L L=96 H=110 CO2 2028-9 28 MEQ/L L=22 H=29 BUN 3094-0 11 MG/DL L=8 H=22 CREATININE 2160-0 0.7 MG/DL L=0.6 H=1.6 SGOT/AST 1920-8 29 IU/L L=10 H=40 SGPT/ALT 1742-6 21 IU/L L=8 H=54 ALK PHOS 6768-6 133 IU/L L=35 H=115 TOTAL PROTEIN 2885-2 5.5 G/DL L=5.5 H=8.5 ALBUMIN 1751-7 2.9 G/DL L=3.1 H=5.4 TOTAL BILI 1975-2 1.9 MG/DL L=0.0 H=1.5 CALCIUM 87625-0 7.7 MG/DL L=8.2 H=10.6 AGE 64708-5 61 yrs GFR NonAA 29367-5 85 GFR AA 37172-8 103 eGFR 73234-0 >60 N/A eGFR AA* 97314-8 >60 N/A COMPREHENSIVE METABOLIC PANEL - Collect Date/Time: 03/28/2017 15:00 Test Name Code Test Result Test Units Test Ref Range GLUCOSE 2345-7 124 MG/DL L=70 H=100 SODIUM 2951-2 130 MEQ/L L=135 H=148 POTASSIUM 2823-3 4.2 MEQ/L L=3.5 H=5.3 CHLORIDE 2075-0 100 MEQ/L L=96 H=110 CO2 2028-9 24 MEQ/L L=22 H=29 BUN 3094-0 13 MG/DL L=8 H=22 CREATININE 2160-0 0.7 MG/DL L=0.6 H=1.6 SGOT/AST 1920-8 31 IU/L L=10 H=40 SGPT/ALT 1742-6 15 IU/L L=8 H=54 ALK PHOS 6768-6 157 IU/L L=35 H=115 TOTAL PROTEIN 2885-2 7.2 G/DL L=5.5 H=8.5 ALBUMIN 1751-7 3.5 G/DL L=3.1 H=5.4 TOTAL BILI 1975-2 1.4 MG/DL L=0.0 H=1.5 CALCIUM 62569-1 8.4 MG/DL L=8.2 H=10.6 AGE 11298-4 61 yrs GFR NonAA 62812-7 85 GFR AA 01516-4 103 eGFR 48760-9 >60 N/A eGFR AA* 41558-1 >60 N/A COMPREHENSIVE METABOLIC PANEL - Collect Date/Time: 03/28/2017 10:15 Test Name Code Test Result Test Units Test Ref Range GLUCOSE 2345-7 105 MG/DL L=70 H=100 SODIUM 2951-2 130 MEQ/L L=135 H=148 POTASSIUM 2823-3 4.4 MEQ/L L=3.5 H=5.3 CHLORIDE 2075-0 100 MEQ/L L=96 H=110 CO2 2028-9 20 MEQ/L L=22 H=29 BUN 3094-0 13 MG/DL L=8 H=22 CREATININE 2160-0 0.7 MG/DL L=0.6 H=1.6 SGOT/AST 1920-8 18 IU/L L=10 H=40 SGPT/ALT 1742-6 13 IU/L L=8 H=54 ALK PHOS 6768-6 148 IU/L L=35 H=115 TOTAL PROTEIN 2885-2 6.3 G/DL L=5.5 H=8.5 ALBUMIN 1751-7 3.3 G/DL L=3.1 H=5.4 TOTAL BILI 1975-2 0.4 MG/DL L=0.0 H=1.5 CALCIUM 13074-0 8.1 MG/DL L=8.2 H=10.6 AGE 61 yrs GFR NonAA 85 GFR AA 103 eGFR >60 N/A eGFR AA* >60 N/A LIPASE - Collect Date/Time: 03/28/2017 10:15 Test Name Code Test Result Test Units Test Ref Range LIPASE 3040-3 33 U/L L=8 H=78 MAGNESIUM - Collect Date/Time: 03/31/2017 05:10 Test Name Code Test Result Test Units Test Ref Range MAGNESIUM 32281-4 2.0 MG/DL L=1.7 H=2.8 MAGNESIUM - Collect Date/Time: 03/30/2017 05:05 Test Name Code Test Result Test Units Test Ref Range MAGNESIUM 10807-1 2.2 MG/DL L=1.7 H=2.8 MAGNESIUM - Collect Date/Time: 03/28/2017 15:00 Test Name Code Test Result Test Units Test Ref Range MAGNESIUM 91428-2 2.0 MG/DL L=1.7 H=2.8 PHOSPHORUS - Collect Date/Time: 03/30/2017 05:05 Test Name Code Test Result Test Units Test Ref Range PHOSPHORUS 2777-1 2.1 MG/DL L=2.5 H=4.5 RENAL FUNCTION PANEL - Collect Date/Time: 03/31/2017 05:10 Test Name Code Test Result Test Units Test Ref Range GLUCOSE 2345-7 96 MG/DL L=70 H=100 SODIUM 2951-2 138 MEQ/L L=135 H=148 POTASSIUM 2823-3 3.4 MEQ/L L=3.5 H=5.3 CHLORIDE 2075-0 105 MEQ/L L=96 H=110 CO2 2028-9 26 MEQ/L L=22 H=29 BUN 3094-0 3 MG/DL L=8 H=22 CREATININE 2160-0 0.6 MG/DL L=0.6 H=1.6 ALBUMIN 1751-7 2.9 G/DL L=3.1 H=5.4 CALCIUM 15899-7 8.3 MG/DL L=8.2 H=10.6 PHOSPHORUS 2777-1 2.6 MG/DL L=2.5 H=4.5 AGE 20164-2 61 yrs GFR NonAA 20860-8 102 [place] 78176-6 124 eGFR 07987-3 >60 N/A eGFR AA* 92872-8 >60 N/A CBC W/ AUTO DIFF (RFLX MAN DIFF IF IND) - Collect Date/Time: 03/31/2017 05:10 Test Name Code Test Result Test Units Test Ref Range WBC 73000-4 6.5 TH/CMM L=4.5 H=10.8 RBC 789-8 3.30 ML/CMM L=4.20 H=5.40 HGB 718-7 8.7 G/DL L=12.0 H=16.0 HCT 4544-3 28.7 % L=37.0 H=47.0 MCV 44107-4 87 FL L=81 H=99 MCH 89055-0 26.4 PG L=27.0 H=33.0 MCHC 73154-5 30.3 G/DL L=31.0 H=36[place] [address]-9 54 FL L=36 H=50 [place] [address]-9 17.5 % L=0.0 H=14.8 MPV 38154-3 8.9 FL L=9.3 H=12.5 PLT 777-3 312 TH/CMM L=130 H=440 NRBC# 59042-2 0.02 TH/CMM L=0.00 H=0.00 NRBC% 35433-4 0.3 /100WBC L=0.0 H=2.0 %NEUT 68095-9 61.1 % %LYMP 07895-6 22.9 % %MONO 85043-6 9.8 % %EOS 72903-0 3.1 % %BASO 57811-1 2.8 % #NEUT 87761-2 3.97 TH/CMM L=2.10 H=8.20 #LYMP 06582-6 1.49 TH/CMM L=0.90 H=5.20 #MONO 22690-9 0.64 TH/CMM L=0.16 H=1.00 #EOS 91403-8 0.20 TH/CMM L=0.00 H=0.80 #BASO 83942-2 0.18 TH/CMM L=0.00 H=0.20 MANUAL DIFF 35653-8 NOT IND N/A CBC W/ AUTO DIFF (RFLX MAN DIFF IF IND) - Collect Date/Time: 03/30/2017 05:05 Test Name Code Test Result Test Units Test Ref Range WBC 83885-8 7.3 TH/CMM L=4.5 H=10.8 RBC 789-8 3.28 ML/CMM L=4.20 H=5.40 HGB 718-7 8.4 G/DL L=12.0 H=16.0 HCT 4544-3 27.6 % L=37.0 H=47.0 MCV 25106-0 84 FL L=81 H=99 MCH 09248-4 25.6 PG L=27.0 H=33.0 MCHC 25198-0 30.4 G/DL L=31.0 H=36[place]0 [place] [address]-6 52 FL L=36 H=50 [place] [address]-8 17.2 % L=0.0 H=14.8 MPV 23741-4 8.9 FL L=9.3 H=12.5 PLT 777-3 344 TH/CMM L=130 H=440 NRBC# 19918-7 0.04 TH/CMM L=0.00 H=0.00 NRBC% 68467-9 0.5 /100WBC L=0.0 H=2.0 %NEUT 74510-6 67.1 % %LYMP 31653-0 17.1 % %MONO 08834-6 11.3 % %EOS 13109-8 1.8 % %BASO 63391-7 2.0 % #NEUT 11383-7 4.92 TH/CMM L=2.10 H=8.20 #LYMP 06494-6 1.25 TH/CMM L=0.90 H=5.20 #MONO 73314-2 0.83 TH/CMM L=0.16 H=1.00 #EOS 03455-5 0.13 TH/CMM L=0.00 H=0.80 #BASO 77325-1 0.15 TH/CMM L=0.00 H=0.20 MANUAL DIFF 24249-3 NOT IND N/A CBC W/ AUTO DIFF (RFLX MAN DIFF IF IND) - Collect Date/Time: 03/28/2017 10:15 Test Name Code Test Result Test Units Test Ref Range WBC 57980-7 10.6 TH/CMM L=4.5 H=10.8 RBC 789-8 1.64 ML/CMM L=4.20 H=5.40 HGB 718-7 3.2 G/DL L=12.0 H=16.0 HCT 4544-3 12.3 % L=37.0 H=47.0 MCV 75 FL L=81 H=99 MCH 19.5 PG L=27.0 H=33.0 MCHC 26.0 G/DL L=31.0 H=36.0 RDW SD 53 FL L=36 H=50 RDW CV 19.8 % L=0.0 H=14.8 MPV 9.5 FL L=9.3 H=12.5 PLT 777-3 568 TH/CMM L=130 H=440 NRBC# 0.09 TH/CMM L=0.00 H=0.00 NRBC% 0.9 /100WBC L=0.0 H=2.0 %NEUT 80.9 % %LYMP 11.8 % %MONO 6.4 % %EOS 0.2 % %BASO 0.1 % #NEUT 8.55 TH/CMM L=2.10 H=8.20 #LYMP 1.24 TH/CMM L=0.90 H=5.20 #MONO 0.67 TH/CMM L=0.16 H=1.00 #EOS 0.02 TH/CMM L=0.00 H=0.80 #BASO 0.01 TH/CMM L=0.00 H=0.20 SEGS 84 % BANDS 3 % LYMPHS 9 % EOS 1 % BASO 3 % MANUAL DIFF SEE BELOW N/A MICRO 1+ N/A POIK 1+ N/A HYPO 4+ N/A POLYCHROMASIA 3+ N/A CBC W/ MANUAL DIFF - Collect Date/Time: 03/29/2017 05:25 Test Name Code Test Result Test Units Test Ref Range WBC 05044-9 7.1 TH/CMM L=4.5 H=10.8 RBC 789-8 3.25 ML/CMM L=4.20 H=5.40 HGB 718-7 8.2 G/DL L=12.0 H=16.0 HCT 4544-3 26.3 % L=37.0 H=47.0 MCV 19673-4 81 FL L=81 H=99 MCH 97273-6 25.2 PG L=27.0 H=33.0 MCHC 97183-7 31.2 G/DL L=31.0 H=36[place] [address]-8 48 FL L=36 H=50 [place] [address]-9 16.4 % L=0.0 H=14.8 MPV 92407-7 8.8 FL L=9.3 H=12.5 PLT 777-3 359 TH/CMM L=130 H=440 NRBC# 44337-2 0.14 TH/CMM L=0.00 H=0.00 NRBC% 31050-9 2.0 /100WBC L=0.0 H=2.0 %NEUT 08648-5 71.0 % %LYMP 96407-4 16.0 % %MONO 53019-6 10.1 % %EOS 17423-9 0.8 % %BASO 74941-1 1.7 % #NEUT 05784-4 5.06 TH/CMM L=2.10 H=8.20 #LYMP 59218-6 1.14 TH/CMM L=0.90 H=5.20 #MONO 70782-4 0.72 TH/CMM L=0.16 H=1.00 #EOS 87621-1 0.06 TH/CMM L=0.00 H=0.80 #BASO 37213-4 0.12 TH/CMM L=0.00 H=0.20 SEGS 04802-8 73 % BANDS 33910-3 0 % LYMPHS 86944-5 23 % MONOS 32057-0 4 % ANISO 11034-5 1+ N/A HYPO 71144-0 1+ N/A POLYCHROMASIA 98315-5 1+ N/A CBC W/ MANUAL DIFF - Collect Date/Time: 03/28/2017 15:00 Test Name Code Test Result Test Units Test Ref Range WBC 56811-0 9.0 TH/CMM L=4.5 H=10.8 RBC 789-8 2.38 ML/CMM L=4.20 H=5.40 HGB 718-7 5.3 G/DL L=12.0 H=16.0 HCT 4544-3 19.0 % L=37.0 H=47.0 MCV 24290-2 80 FL L=81 H=99 MCH 48297-2 22.3 PG L=27.0 H=33.0 MCHC 39219-1 27.9 G/DL L=31.0 H=36.[place] [address]-9 54 FL L=36 H=50 [place] [address]-2 18.7 % L=0.0 H=14.8 MPV 76468-8 8.5 FL L=9.3 H=12.5 PLT 777-3 501 TH/CMM L=130 H=440 NRBC# 03154-3 0.06 TH/CMM L=0.00 H=0.00 NRBC% 94028-8 0.7 /100WBC L=0.0 H=2.0 %NEUT 54399-5 82.4 % %LYMP 42315-2 10.0 % %MONO 84963-5 6.0 % %EOS 28257-0 0.1 % %BASO 36500-3 0.7 % #NEUT 08074-0 7.45 TH/CMM L=2.10 H=8.20 #LYMP 22252-4 0.90 TH/CMM L=0.90 H=5.20 #MONO 84765-0 0.54 TH/CMM L=0.16 H=1.00 #EOS 54970-4 0.01 TH/CMM L=0.00 H=0.80 #BASO 88438-2 0.06 TH/CMM L=0.00 H=0.20 SEGS 94142-9 70 % BANDS 74632-2 1 % LYMPHS 97148-1 22 % MONOS 08398-2 1 % BASO 21975-5 6 % MICRO 23788-5 1+ N/A ANISO 39998-3 2+ N/A POIK 25192-5 1+ N/A HYPO 69105-5 3+ N/A POLYCHROMASIA 22950-1 1+ N/A H and H - Collect Date/Time: 03/28/2017 22:00 Test Name Code Test Result Test Units Test Ref Range HGB 718-7 8.7 G/DL L=12.0 H=16.0 HCT 4544-3 28.1 % L=37.0 H=47.0 PROTIME - Collect Date/Time: 03/29/2017 05:25 Test Name Code Test Result Test Units Test Ref Range PROTIME 5964-2 12.7 SEC L=9.9 H=11.9 INR 30505-3 1.2 PTT - Collect Date/Time: 03/29/2017 05:25 Test Name Code Test Result Test Units Test Ref Range PTT 3173-2 31.4 SEC L=22.2 H=37.2 UA ROUTINE C&S IF IND - Collect Date/Time: 03/28/2017 14:30 Test Name Code Test Result Test Units Test Ref Range COLOR YELLOW N/A NL: YELLOW APPEARANCE CLEAR N/A NL: CLEAR SPEC GRAV 1.010 N/A NL: 1.002 - 1.022 pH 5.5 N/A NL: 5 - 9 PROTEIN NEGATIVE N/A NL: NEGATIVE mg/dl GLUCOSE NEGATIVE N/A NL: NEGATIVE mg/dl KETONE NEGATIVE N/A NL: NEGATIVE mg/dl BILIRUBIN NEGATIVE N/A NL: NEGATIVE BLOOD NEGATIVE N/A NL: NEGATIVE NITRITE NEGATIVE N/A NL: NEGATIVE LEUK SCREEN NEGATIVE N/A NL: NEGATIVE MICRO INDICATED? NOT INDICATED N/A .BB ABO RH RETYPE - Collect Date/Time: 03/28/2017 10:33 Test Name Code Test Result Test Units Test Ref Range ABO/Rh Recheck O Negative N/A .BB COMPATIBILITY - Collect Date/Time: 03/28/2017 15:54 Test Name Code Test Result Test Units Test Ref Range Cross Match Result Compatible N/A Unit Blood Type O Neg N/A Unit Number [id number] RBC -1 IRR LR N/A Status Information Ready N/A Product Identification Red Blood Cells N/A .BB COMPATIBILITY - Collect Date/Time: 03/28/2017 15:51 Test Name Code Test Result Test Units Test Ref Range Cross Match Result 1250-0 Compatible N/A Unit Blood Type 1250-0 O Neg N/A Unit Number 1250-0 [id number] RBC -1 IRR LR N/A Status Information 1250-0 Ready N/A Product Identification 1250-0 Red Blood Cells N/A .BB COMPATIBILITY - Collect Date/Time: 03/28/2017 10:57 Test Name Code Test Result Test Units Test Ref Range Cross Match Result Compatible N/A Unit Blood Type O Neg N/A Unit Number [id number] RBC -3 LR N/A Status Information Ready N/A Product Identification Red Blood Cells N/A .BB COMPATIBILITY - Collect Date/Time: 03/28/2017 10:56 Test Name Code Test Result Test Units Test Ref Range Cross Match Result Compatible N/A Unit Blood Type O Neg N/A Unit Number [id number] RBC -1 LR N/A Status Information Ready N/A Product Identification Red Blood Cells N/A TYPE AND SCREEN - Collect Date/Time: 03/28/2017 10:15 Test Name Code Test Result Test Units Test Ref Range ABO/Rh Type O Negative N/A Antibody Screen-Gel Negative N/A BNP - Collect Date/Time: 03/28/2017 10:15 Test Name Code Test Result Test Units Test Ref Range BNP 48231-4 1258 PG/ML L=0 H=100 TROPONIN-I ADV - Collect Date/Time: 03/28/2017 15:00 Test Name Code Test Result Test [place] [address]-5 <0.04 ng/mL L=0.04 H=0.40 TROPONIN-I ADV - Collect Date/Time: 03/28/2017 10:15 Test Name Code Test Result Test Units [place] [address]-9 <0.04 ng/mL L=0.04 H=0.40 LACTIC ACID - Collect Date/Time: 03/28/2017 15:00 Test Name Code Test Result Test Units Test Ref Range LACTIC ACID 2524-7 1.0 mmol/L L=0.5 H=1.6 LACTIC ACID - Collect Date/Time: 03/28/2017 10:15 Test Name Code Test Result Test Units Test Ref Range LACTIC ACID 2524-7 2.1 mmol/L L=0.5 H=1.6 PREALBUMIN - Collect Date/Time: 03/28/2017 10:15 Test Name Code Test Result Test Units Test Ref Range PREALBUMIN 59189-3 13 MG/DL L=17 H=34 Function Status Unknown or Not Available. History of Immunizations Immunization Code Date pneumococcal polysaccharide [id number] 04/01/2017 Plan of Treatment Unknown or Not Available. Social History Smoking Status Code Start Date End Date Current every day smoker [id number] Vital Signs Vital Sign Value Unit Date/Time Recent/Initial? BMI (Body Mass Index) 19.73 kg/m2 03/28/2017 14:35 Initial VS Weight Measured 101 [lb_av] 03/28/2017 14:35 Initial VS Height 60 [in_i] 03/28/2017 14:35 Initial VS BSA (Body Surface Area) 1.39 m2 03/28/2017 14:35 Initial VS Body Temperature 98.8 [degF] 03/28/2017 14:35 Initial VS BP Systolic 126 mm[Hg] 03/28/2017 14:41 Initial VS BP Diastolic 83 mm[Hg] 03/28/2017 14:41 Initial VS Respiratory Rate 22 /min 03/28/2017 14:42 Initial VS Heart Rate 93 /min 03/28/2017 14:42 Initial VS O2 % BldC Oximetry 100 % 03/28/2017 14:42 Initial VS BMI (Body Mass Index) 19.24 kg/m2 03/31/2017 05:36 Most Recent VS Weight Measured 98.5 [lb_av] 03/31/2017 05:36 Most Recent VS Height 60 [in_i] 03/31/2017 05:36 Most Recent VS BSA (Body Surface Area) 1.38 m2 03/31/2017 05:36 Most Recent VS Body Temperature 98.4 [degF] 04/01/2017 11:49 Most Recent VS BP Systolic 134 mm[Hg] 04/01/2017 12:00 Most Recent VS BP Diastolic 92 mm[Hg] 04/01/2017 12:00 Most Recent VS Respiratory Rate 12 /min 04/01/2017 12:01 Most Recent VS Heart Rate 100 /min 04/01/2017 12:01 Most Recent VS O2 % BldC Oximetry 94 % 04/01/2017 12:01 Most Recent VS Function Status Unknown or Not Available. Goals Unknown or Not Available. ASSESSMENTS Unknown or Not Available. Health Concerns Section Unknown or Not Available.
[2019-04-11] MEDS ORDERED: NS IV 1000 ML 1,000 ML IV SCH (19:29)
[2019-04-11 19:38] LABS: BASOPHILS # (AUTO) 0.1 10^3/uL (0.0-0.1); BASOPHILS % (AUTO) 1 % (0-10); EOSINOPHILS # (AUTO) 0.1 10^3/uL (0.0-0.3); EOSINOPHILS % (AUTO) 2 % (0-10); HEMATOCRIT 39 % (35-52); HEMOGLOBIN 14.2 G/DL (11.5-16.0); LYMPHOCYTES % (AUTO) 45 % (12-44); MEAN CORPUSCULAR HEMOGLOBIN 34 PG (25-34); MEAN CORPUSCULAR HGB CONC 36 G/DL (32-36); MEAN CORPUSCULAR VOLUME 94 FL (80-99); MEAN PLATELET VOLUME 8.9 FL (7.4-10.4); MONOCYTES # (AUTO) 0.5 X 10^3 (0.0-1.0); MONOCYTES % (AUTO) 8 % (0-12); NEUTROPHILS # (AUTO) 2.9 X 10^3 (1.8-7.8); NEUTROPHILS % (AUTO) 44 % (42-75); PLATELET COUNT 272 10^3/uL (130-400); RED CELL DISTRIBUTION WIDTH 12.8 % (10.0-14.5); WHITE BLOOD COUNT 6.6 10^3/uL (4.3-11.0)
--- NOTE | 2019-04-11 19:45 | NUR ---
warm blanket provided to the patient as well as a cup of water. patient is resting queitly and is tearful if asked about her intentions to hurt herself. frequent monitoring maintained.
[2019-04-11 19:50] LABS: ALANINE AMINOTRANSFERASE 36 U/L (0-55); ALBUMIN 4.3 GM/DL (3.2-4.5); ALKALINE PHOSPHATASE 106 U/L (40-136); BILIRUBIN,TOTAL 0.2 MG/DL (0.1-1.0); BUN/CREATININE RATIO 11; CALCIUM 9.1 MG/DL (8.5-10.1); CARBON DIOXIDE 25 MMOL/L (21-32); CHLORIDE 92 MMOL/L (98-107); CREATININE SERUM 0.64 MG/DL (0.60-1.30); GFR ESTIMATED > 60; GLUCOSE 93 MG/DL (70-105); POTASSIUM 4.2 MMOL/L (3.6-5.0); SALICYLATE < 5.0 MG/DL (5.0-20.0); SODIUM 128 MMOL/L (135-145); TOTAL PROTEIN 7.4 GM/DL (6.4-8.2)
[2019-04-11 19:57] LABS: ACETAMINOPHEN < 10 UG/ML (10-30)
--- NOTE | 2019-04-11 20:03 | ED Psychosocial ---
General Chief Complaint: Overdose Stated Complaint: DEPRESSION/OVERDOSE History of Present Illness Date Seen by Provider: Apr 11, 2019 Time Seen by Provider: 19:05 Initial Comments 63-year-old female presents via EMS after taking a handful of atenolol. Patient reports "I am not sure why he took them". She denies suicidal ideations, hallucinations or depression. She spent the day with her son and granddaughter. Reports drinking approximately 6 beers today. She reports this is a normal amount of daily alcohol for her, "sometimes more or less", she only drinks beer, smokes 1/2 pack of cigarettes a day and denies drug use. She reports a history of depression that was treated with Xanax and upon further clarification was possibly anxiety, approximately 3 years ago. All health care is by Dr. Sommers in [place]. She has never seen mental health. She denies any acute stressors or life changes, her 3 years ago and father's day is no harder than any other day. She became tearful when talking about him. She reports EMS notified her son of the transfer to the ED. Her daughter came to the waiting room but the patient prefers she not be allowed in the room, stating "she will be mad at me" In 09/18/18, she was seen here for ankle/foot injury, she took 6 Xanax for the pain, prior to calling EMS. Timing/Duration: just prior to arrival Associated Symptoms: denies symptoms (NITA RAMACHANDRAN) Allergies and Home Medications Allergies Coded Allergies: No Known Drug Allergies (Unverified , 09/18/18) Patient Home Medication List Home Medication List Reviewed: Yes (NITA RAMACHANDRAN) Review of Systems Constitutional: no symptoms reported, see HPI EENTM: see HPI, no symptoms reported Respiratory: no symptoms reported, see HPI Cardiovascular: no symptoms reported, see HPI Gastrointestinal: no symptoms reported, see HPI Genitourinary: no symptoms reported, see HPI Musculoskeletal: no symptoms reported, see HPI Skin: no symptoms reported, see HPI Psychiatric/Neurological: See HPI, Depressed (NITA RAMACHANDRAN) All Other Systems Reviewed Negative Unless Noted: Yes (NITA RAMACHANDRAN) Past Tntepyp-Yrieke-Tjrtko Hx Past Med/Social Hx: Reviewed Nursing Past Med/Soc Hx (NITA RAMACHANDRAN) Patient Social History Alcohol Use: Regular Use Number of Drinks Today: 6 Alcohol Beverage of Choice: Beer, Scotch Recreational Drug Use: No Smoking Status: Current Everyday Smoker Type Used: Cigarettes 2nd Hand Smoke Exposure: No Recent Hopitalizations: No (NITA RAMACHANDRAN) Seasonal Allergies Seasonal Allergies: No (NITA RAMACHANDRAN) Past Medical History Surgeries: Yes (left shoulder) Appendectomy, Section, Gallbladder, Lumpectomy, Orthopedic, Parathyroidectomy Respiratory: No Cardiac: No 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 0oz. [id number]; BMI Method:Stated General Appearance: WD/WN, no apparent distress HEENT: PERRL/EOMI, normal ENT inspection, TMs normal, pharynx normal Neck: non-tender, full range of motion, supple Respiratory: chest non-tender, lungs clear, normal breath sounds Cardiovascular: normal peripheral pulses, regular rate, rhythm Gastrointestinal: normal bowel sounds, non tender, soft Neurologic/Psychiatric: no motor/sensory deficits, alert, oriented x 3 Appearance/Memory: appropriate appearance, neat Behavior/Eye Contact: cooperative, good eye contact, normal speech, other (tearful ) Thoughts/Hallucinations: normal thought pattern, no apparent hallucination; No auditory hallucinations, No grandiose, No paranoid, No persecution, No phobic, No tactile hallucinations, No visual hallucinations Skin: normal color, warm/dry Lymphatic: no adenopathy (NITA RAMACHANDRAN) Progress/Results/Core Measures Results/Orders Lab Results Laboratory Tests Test 04/11/19 19:10 04/11/19 21:18 04/11/19 21:59 Range/Units White Blood Count 6.6 4.3-11.0 10^3/uL Red Blood Count 4.14 L 4.35-5.85 10^6/uL Hemoglobin 14.2 11.5-16.0 G/DL Hematocrit 39 35-52 % Mean Corpuscular Volume 94 80-99 FL Mean Corpuscular Hemoglobin 34 25-34 PG Mean Corpuscular Hemoglobin Concent 36 32-36 G/DL Red Cell Distribution Width 12.8 10.0-14.5 % Platelet Count 272 130-400 10^3/uL Mean Platelet Volume 8.9 7.4-10.4 FL Neutrophils (%) (Auto) 44 42-75 % Lymphocytes (%) (Auto) 45 H 12-44 % Monocytes (%) (Auto) 8 0-12 % Eosinophils (%) (Auto) 2 0-10 % Basophils (%) (Auto) 1 0-10 % Neutrophils # (Auto) 2.9 1.8-7.8 X 10^3 Lymphocytes # (Auto) 3.0 1.0-4.0 X 10^3 Monocytes # (Auto) 0.5 0.0-1.0 X 10^3 Eosinophils # (Auto) 0.1 0.0-0.3 10^3/uL Basophils # (Auto) 0.1 0.0-0.1 10^3/uL Sodium Level 128 L 135-145 MMOL/L Potassium Level 4.2 3.6-5.0 MMOL/L Chloride Level 92 L 98-107 MMOL/L Carbon Dioxide Level 25 21-32 MMOL/L Anion Gap 11 5-14 MMOL/L Blood Urea Nitrogen 7 7-18 MG/DL Creatinine 0.64 0.60-1.30 MG/DL Estimat Glomerular Filtration Rate > 60 BUN/Creatinine Ratio 11 Glucose Level 93 70-105 MG/DL Calcium Level 9.1 8.5-10.1 MG/DL Corrected Calcium 8.9 8.5-10.1 MG/DL Total Bilirubin 0.2 0.1-1.0 MG/DL Aspartate Amino Transf (AST/SGOT) 38 H 5-34 U/L Alanine Aminotransferase (ALT/SGPT) 36 0-55 U/L Alkaline Phosphatase 106 40-136 U/L Troponin I < 0.028 <0.028 NG/ML Total Protein 7.4 6.4-8.2 GM/DL Albumin 4.3 3.2-4.5 GM/DL TSH [place] Testing 1.13 0.35-4.94 UIU/ML Salicylates Level < 5.0 L 5.0-20.0 MG/DL Acetaminophen Level < 10 L 10-30 UG/ML Serum Alcohol 230 H <10 MG/DL Urine Color YELLOW Urine Clarity CLEAR Urine pH 6.5 5-9 Urine Specific [place] 1.010 L 1.016-1.022 Urine Protein NEGATIVE NEGATIVE Urine Glucose (UA) NEGATIVE NEGATIVE Urine Ketones NEGATIVE NEGATIVE Urine Nitrite NEGATIVE NEGATIVE Urine Bilirubin NEGATIVE NEGATIVE Urine Urobilinogen NORMAL NORMAL MG/DL Urine Leukocyte Esterase 2+ H NEGATIVE Urine RBC (Auto) NEGATIVE NEGATIVE Urine RBC NONE /HPF Urine WBC 5-10 H /HPF Urine Squamous Epithelial Cells 5-10 /HPF Urine Crystals NONE /LPF Urine Bacteria NEGATIVE /HPF Urine Casts NONE /LPF Urine Mucus NEGATIVE /LPF Urine Trichomonas MODERATE H /HPF Urine Culture Indicated NO Urine Opiates Screen NEGATIVE NEGATIVE Urine Oxycodone Screen NEGATIVE NEGATIVE Urine Methadone Screen NEGATIVE NEGATIVE Urine Propoxyphene Screen NEGATIVE NEGATIVE Urine Barbiturates Screen NEGATIVE NEGATIVE Ur Tricyclic Antidepressants Screen NEGATIVE NEGATIVE Urine Phencyclidine Screen NEGATIVE NEGATIVE Urine Amphetamines Screen NEGATIVE NEGATIVE Urine Methamphetamines Screen NEGATIVE NEGATIVE Urine Benzodiazepines Screen NEGATIVE NEGATIVE Urine Cocaine Screen NEGATIVE NEGATIVE Urine Cannabinoids Screen NEGATIVE NEGATIVE Glucometer 93 70-110 MG/DL (MAYRA FOURNIER) Medications Given in ED Current Medications Medications Dose Ordered Sig/Marcia Route Start Time Stop Time Status Last Admin Dose Admin Diphenhydramine HCl 25 mg ONCE ONCE PO 04/11/19 22:00 04/11/19 22:01 DC 04/11/19 22:30 25 MG Ondansetron HCl 4 mg ONCE ONCE IVP 04/11/19 20:15 04/11/19 21:14 DC 04/11/19 20:18 4 MG (MAYRA FOURNIER) Vital Signs/I&O 04/11/19 19:05 Temp 97.2 Pulse 78 Resp 20 B/P (MAP) 154/96 (115) Pulse Ox 94 04/12/19 00:00 Intake Total 1000 ml Balance 1000 ml (MAYRA FOURNIER) Progress Progress Note : Time: 19:05 Progress Note Patient seen and evaluated, will obtain labs, EKG, continue to monitor blood pressure every 15 minutes and heart rate continuously. Pills in bottle counted by DANIEL Baird. She got 90 tables 1 month ago, there are 50 tablets in bottle to indicate she took one daily for a month and possibly 9-10 tonight? Patient denies ever taking more than one a day. 1934 EKG essentially normal, heart rate remains in the 70s to 80s. Spoke to poison control and precautions reviewed with them. Recommended observation for 6 hours from time of ingestion. If she becomes hypotensive or bradycardic recommended we give glucagon as initial treatment. 2030 B/P 120/78 P 84; patient resting in bed with no complaints. Her son and daughter are present in waiting room, she would like to speak with her son. He was brought to the room and she discussed the events from this evening. He is supportive and understanding. She is declining mental health services. She states "I learned a hard lessened tonight" and continues to deny a reason why she took the Atenolol. Discussed with her, if any pills fell on the floor or she did vomit them? She denies. However, her b/p was elevated initally and pulse has been 70-80, not compatible with 400-500 mg of Atenolol dose. 2100 B/P 106/74 P 70. 2114 B/P 133/87 P 74; Patient complained of Nausea and Headache, will give Tylenol 650 mg orally and Zofran 4 mg IV. 2129 B/P 106/80 P 78. 0 Accucheck 93. Follow up call from Poison Control. No further recommendations, patient stable. 2229 B/P 116/78 P 76; Patient reports improvement in headache. Ambulated to bathroom, stable. Will montior until [id number], if no decrease in b/p or pulse, can be discharged to home with follow up at Dr. Milligan. Care transferred to Dr. Fournier, report given. (NITA RAMACHANDRAN) Progress Note : Time: 00:02 Progress Note Patient's blood pressure is 100/73 heart rate is in the mid 70s. Is never gone below 70. No evidence of a beta suzanne toxidrome. We've encouraged her not to take her atenolol today and call and make a follow-up appointment with her primary care doctor this week. Her son is here to take her home. (MAYRA FOURNIER) Initial ECG Impression Date: Apr 11, 2019 Initial ECG Impression Time: 19:11 Initial ECG Rate: 77 Initial ECG Rhythm: Normal Sinus Initial ECG Intervals: Normal Initial ECG Intervals HI 172, QRSD 94, QT 392, QTC 444. Manley P 47, QRS 54, T 38. Initial ECG Impression: Normal Initial ECG Comparisson: No Previous ECG Available Comment Review by myself and Dr. Fournier, concurred with interpretation. (NITA RAMACHANDRAN) Departure Impression Primary Impression: Overdose of antihypertensive agent Qualified Codes: T46.5X4A - Poisoning by other antihypertensive drugs, undetermined, initial encounter Disposition: HOME, SELF-CARE Condition: Stable Departure-Patient Inst. Decision time for Depature: 23:30 (NITA RAMACHANDRAN) Referrals: STERLING SOMMERS DO (PCP/Family) Primary Care Physician Patient Instructions: ALCOHOL AND SUBSTANCE ABUSE, Accidental Overdose (DC), Prescription Drug Abuse (DC) Add. Discharge Instructions: Take your prescribed medication as directed and no additional doses. Call [phone] if feeling depressed or thoughts to harm self or others. Call 911 if feelings to harm self immediately. Follow up with Dr. Sommers early this week to consider evaluation and treatment for depression. Communicate with your children, if upset or depressed. Return to emergency department for suicidal thoughts or urgent health care needs. All discharge instructions reviewed with patient and/or family. Voiced understanding. NITA RAMACHANDRAN Apr 11, 2019 20:03 MAYRA FOURNIER Apr 12, 2019 00:02
[2019-04-11] MEDS ORDERED: APAP 325 MG/10.15 ML LIQ (TYLENOL) UDC PO STA (20:05)
[2019-04-11] MEDS ORDERED: ACETAMINOPHEN 325 MG TABLET ONE (20:09)
[2019-04-11 20:10] LABS: TSH (THYROID ANALYZER) 1.13 UIU/ML (0.35-4.94)
[2019-04-11] MEDS ORDERED: ACETAMINOPHEN 325 MG TABLET PO STA (20:13)
[2019-04-11] MEDS ORDERED: ONDANSETRON 4 MG/2 ML (SDV) Z0FRAN IVP ONE (20:15)
--- NOTE | 2019-04-11 20:18 | NUR ---
to room to administer medications as ordered.
--- NOTE | 2019-04-11 20:45 | NUR ---
patient son Tay asks how long patient will be here and was informed we will continue to monitor for another 3 and a half hours per Charlotte BLACKBURN. Tay verbalizes he will return around 1130.
--- NOTE | 2019-04-11 21:15 | NUR ---
patient up to bathroom, was able to urinate, specimine sent to lab. patient is steady on her feet with a standby assist, helped back in to bed connected back up to the monitor and vital signs machine. frequent monitoring maintained. patient asked if her daughter Mague could come back, this was cleared by Charlotte BLACKBURN however when this RN to waiting room to bring daughter back to room she was not in there. patient informed.
[2019-04-11 21:24] LABS: BILIRUBIN,URINE NEGATIVE (NEGATIVE); CLARITY,URINE CLEAR; COLOR,URINE YELLOW; GLUCOSE, URINE (UA) NEGATIVE (NEGATIVE); KETONES,URINE NEGATIVE (NEGATIVE); LEUKOCYTE ESTERASE ,URINE 2+ (NEGATIVE); NITRITE,URINE NEGATIVE (NEGATIVE); PH,URINE 6.5 (5-9); PROTEIN,URINE NEGATIVE (NEGATIVE); UROBILINOGEN,URINE NORMAL (NORMAL)
[2019-04-11 21:32] LABS: BACTERIA,URINE NEGATIVE /HPF; TRICHOMONAS,URINE MODERATE /HPF
[2019-04-11 21:38] LABS: AMPHETAMINE SCREEN, URINE NEGATIVE (NEGATIVE); BARBITURATE SCREEN URINE NEGATIVE (NEGATIVE); BENZODIAZEPINES SCREEN URINE NEGATIVE (NEGATIVE); CANNABINOID SCREEN, URINE NEGATIVE (NEGATIVE); COCAINE SCREEN URINE NEGATIVE (NEGATIVE); METHADONE STAT NEGATIVE (NEGATIVE); METHAMPHETAMINE SCREEN URINE S NEGATIVE (NEGATIVE); OPIATE SCREEN URINE NEGATIVE (NEGATIVE); OXYCODONE STAT NEGATIVE (NEGATIVE); PROPOXYPHENE STAT NEGATIVE (NEGATIVE); TRICYCLIC ANTIDEPRESSANTS SCRE NEGATIVE (NEGATIVE)
--- NOTE | 2019-04-11 21:44 | NUR ---
in room to check on patient. denies needs at this time. frequent monitoring maintained.
[2019-04-11] MEDS ORDERED: KETOROLAC 30 MG/ML VIAL IVP STA (21:58)
[2019-04-11] MEDS ORDERED: diphenhydrAMINE 25 MG TAB (BENADRYL) PO ONE (22:00)
--- NOTE | 2019-04-11 22:34 | NUR ---
patient up to restroom. has eaten her crackers and peanut butter and is drinking her ice water
[2019-04-12 00:10] VITALS: BP 95/66
--- NOTE | 2019-04-12 00:10 | NUR ---
patient son is waiting in waiting room for patient. patient is excorted out to waiting room by PCT NITA
== END 2019-04-12 00:16 | disposition home or self-care (01) ==
LOC: EDUNIT# 19:03 → ER 19:06
DX: T46.5X4A Poisoning by other antihypertensive drugs, undetermined, initial encounter (principal); K21.9 Gastro-esophageal reflux disease without esophagitis; F41.9 Anxiety disorder, unspecified; F32.9 Major depressive disorder, single episode, unspecified; F17.210 Nicotine dependence, cigarettes, uncomplicated; Z90.49 Acquired absence of other specified parts of digestive tract; Z98.890 Other specified postprocedural states; Z90.89 Acquired absence of other organs; Z90.710 Acquired absence of both cervix and uterus
CPT/HCPCS: 36415; 80053; 80306; 80320; 80329; 81000; 82962; 84443; 84484; 85025; 93005; 93041; 96361; 96374; 96375

== ENCOUNTER → 2023-02-13 | Outpatient (CLI) | payer MEDICARE, MEDICAID ==
[~2023-02-13] MED LIST changes: +HOLD METFORMIN - RECEIVED CONTRAST 20 ML VIAL IV SCH; +IOHEXOL 350 MG/ML 100 ML (OMNIPAQUE 350) VIAL IV ONE; +NS 100 ML (IVPB) BAG IV ONE
[2023-02-13 09:44] LABS: CREATININE SERUM 0.67 MG/DL (0.60-1.30)
--- NOTE | 2023-02-13 12:44 | Diagnostic Imaging Report ---
CLINICAL INDICATION: Patient with half thyroid removed. Patient has hoarseness x1.5 years. EXAM: Axial CT scan of the neck soft tissue performed with 75 mL of Omnipaque 350 IV contrast. Sagittal and coronal reformatted images. Auto Exposure Controls were utilized during the CT exam to meet ALARA standards for radiation dose reduction. COMPARISON: None. FINDINGS: There is sclerosis of the bilateral arytenoid cartilages. There is no measurable mass in the region. The glottis is closed. The nasopharynx, oropharynx, hypopharynx, and laryngeal soft tissue structures are unremarkable. The right thyroid lobe is surgically absent. The left thyroid lobe is visualized and unremarkable as visualized. Salivary glands are unremarkable. Visualized portions of the oral cavity, tongue, sublingual and submandibular regions are unremarkable. There is no neck lymphadenopathy. Limited visualization of the intracranial structures is unremarkable. Visualized portions of the orbits and globes are unremarkable. There is a small amount of mucosal thickening involving the left maxillary sinus and small amount of fluid and mucosal thickening involving the sphenoid sinus. There is sclerosis and bony thickening involving the sphenoid sinus. There is a small amount of fluid within the right mastoid air cells. There are small degenerative spurs involving the cervical spine. IMPRESSION: 1: There is no neck soft tissue mass, fluid collection, or inflammation. There is no lymphadenopathy. 2: There is sclerosis of the bilateral arytenoid cartilages with no measurable mass seen. The glottis is closed with no significant abnormality visualized. 3: Surgically absent right thyroid lobe. Left thyroid lobe shows no significant abnormality. Dictated by: Dictated on workstation # [id number]
== END ==
LOC: RAD 09:17
PROVIDERS: ATTEND Otolaryngology Otolaryngology/Facial Plastic Surgery
DX: R49.0 Dysphonia (principal); E89.0 Postprocedural hypothyroidism
CPT/HCPCS: 36415; 70491; 82565; 84520